=== PATIENT | female | born 2000 | race Caucasian/White ===

== ENCOUNTER 2023-12-28 11:22 | Outpatient (AMB) | payer OTHER, SELFPAY ==
--- NOTE | 2023-12-28 11:24 | MHC.PC.OV ---
Vital Signs 12/28/23 11:35 Height 5 ft 7 in Weight 160 lb 6 oz BMI 25.1 BP 106/60 Blood Pressure Location Lt brachial Position Sitting Respiration 12 Pulse 101 H Pulse Source Pulse Oximeter Pulse Oximetry (%) 99 Oxygen Delivery Method Room Air Intake Visit Reasons: CPE Intake Note: Patient is here for a CPE and she would like to discuss getting her control out and has a concern for hearing evaluation. Operational Intelligence Officer Required: No Accompanied by: Self / Same As Patient Allergies No Known Allergies Allergy (Verified 12/28/23 11:40) Tobacco use date assessed: 12/28/23 Dental Screening Dental Screen Date: 12/28/23 Did you have a dental visit in the last 12 months?: Yes Did you have a dental problem in the last 6 months where you did not have access to dental care?: No Was dental information given to patient?: Patient has dentist HPI CPE HPI Details Patient is a 23-year-old female who presents today to [facility]. 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 States her last physical was in May. She is here because she aged out of the practice. She reports a significant past medical history of PTSD/anxiety. She is following with a therapist. She has been on fluoxetine 10 mg since 2019 and tolerates this well. She denies any SI/HI. -She does complain today of some decreased hearing for the past year. She states it feels like she ask people to repeat themselves a lot. She has not noticed that 1 side is particularly worse than the other. No ringing in her ears, pain, sinus pain or pressure. Does report a lot of exposure to loud noises. 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 She has a Nexplanon and states that she would like this removed. She does not have a pharmacist critical care. 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 [facility] Medical History (Updated 12/28/23 @ 12:31 by Meghan Meredith PA-C) Anxiety Surgical History (Updated 12/28/23 @ 12:12 by Makeda Srinivasan CMA) No pertinent past surgical history Family History (Updated 12/28/23 @ 12:10 by Makeda Srinivasan CMA) Father Gastrointestinal complaints Paternal Aunt Alcoholism Maternal Grandfather Hyperlipidemia Maternal Grandmother Celiac disease Maternal Uncle Alcoholism Maternal Aunt Alcoholism Paternal Grandfather Colon cancer Sister ADHD (attention deficit hyperactivity disorder) Social History Household Members: Family Housing: House Are you a primary childcare worker to a significant other at home: No Do you presently have visiting nurse or other home services: No 75 years or older and lives alone: No Alcohol intake: current Alcohol intake frequency: a few times a month Patient Tobacco Use Status: Never used Tobacco e-Cigarette/Vaping Use: Never Used service: No Current occupational status: employed Current occupation: [employer] Current occupational exposures/hazards: No Cognitive needs: No Hearing needs: Yes Vision needs: Yes Questionnaire PHQ-9 Over the last 2 weeks, how often have you been bothered by any of the following problems? 1. Little interest or pleasure in doing things: not at all 2. Feeling down, depressed, or hopeless: not at all 3. Trouble falling or staying asleep, or sleeping too much: not at all 4. Feeling tired or having little energy: several days 5. Poor appetite or overeating: not at all 6. Feeling bad about yourself - or that you are a failure or have let yourself or your family down: not at all 7. Trouble concentrating on things, such as reading the newspaper or watching television: not at all 8. Moving or speaking so slowly that other people could have noticed. Or the opposite - being so fidgety or restless that you have been moving around a lot more than usual: not at all 9. Thoughts that you would be better off or of hurting yourself in some way: not at all Total score: 1 Depression Screening Interpretation: Negative (Patient notes she has a therapist ) Depression Screening Done: Yes 74359 - PHQ-9 Billing: Yes Source: Developed by Drs. Chandana Mackay, Raven Lam, Kavin Perales and colleagues, with an educational yvan from [employer]. Thrive Questionnaire Date Thrive assessed: 12/28/23 I am a: Patient What is your living situation today?: I have a steady place to live Within the past 12 months, did the food you bought not last and you didn't have the money to get more?: Never true Within the past 12 months, did you worry whether your food would run out before you got money to buy more?: Never true Do you have trouble paying for medicines?: No Do you have trouble getting transportation to medical appointments?: No Do you have trouble paying your heating and electricity bill?: No Do you have trouble taking care of your child, family member or friend?: No Do you have trouble with day-to-day activities such as bathing, preparing meals, shopping, managing finances, etc.?: No Are you currently unemployed and looking for a job?: No Are you interested in more education?: No Please select the resources that you would like help with: None Currently or been in a relationship where the following occur: No concerns reported THRIVE Score: 0 AUDIT C Alcohol Use Questionnaire (AUDIT-C) 1. How often do you have a drink containing alcohol?: 2-4 times a month 2. How many drinks containing alcohol do you have on a typical day when you are drinking?: 1 or 2 3. How often do you have six or more drinks on one occasion?: Never Total Score: 2 ANNE-7 AMB Questionnaire ANNE-7 Date ANNE - 7 assessed: 12/28/23 Feeling nervous, anxious, or on edge: 2 = More than half the days Not being able to stop or control worryin = More than half the days Worrying too much about different things: 2 = More than half the days Trouble relaxin = Several days Being so restless that it is hard to sit still: 1 = Several days Becoming easily annoyed or irritable: 0 = Not at all Feeling afraid as if something awful might happen: 1 = Several days Total ANNE-7 score (0-4 normal; 5-9 mild; 10-14 moderate; 15-21 severe): 9 Source: Developed by Drs. Chandana Mackay, Raven Lam, Kavin Perales and colleagues, with an educational yvan from [employer]. ANNE-7 Assessment Billing ANNE-7 Assessment Tool: ANNE-7 Assessment 22199 Physical exam (Primary Care) Vital Signs: Last Vital Signs Pulse 101 H 12/28/23 11:35 Resp 12 12/28/23 11:35 BP 106/60 12/28/23 11:35 Pulse Ox 99 12/28/23 11:35 Oxygen Delivery Method Room Air 12/28/23 11:35 BMI result Body Mass Index 25.1 Tobacco/Smoking Status: Tobacco use Status Tobacco use date assessed 12/28/23 12/28/23 11:45 Patient Tobacco Use Status Never used Tobacco 12/28/23 11:45 e-Cigarette/Vaping Use Never Used 12/28/23 11:45 PHQ-9: PHQ-9 Score PHQ-9: Total score 0 12/28/23 11:45 Depression Screening Interpretation: Negative (Patient notes she has a therapist ) Thrive Assessment: Date of Thrive Assessment Date Thrive assessed 12/28/23 12/28/23 11:45 Currently or been in a relationship where the following occur: No concerns reported Const Orientation/consciousness: patient oriented x3 HENMT Ears: hearing grossly normal bilaterally, external ears normal, TM's normal bilaterally, Benavidez (increase to left) and Rinne test (equal) General nose exam: No nasal polyps present Face and sinus: Yes sinuses nontender Mouth: Normal oral and palatal mucosa present and tongue normal Throat: Yes posterior oropharynx normal Neck Thyroid: Thyroid normal Lymphatic: no lymphadenopathy noted Resp Auscultation: clear to auscultation bilaterally Cardio Rate: regular rate Rhythm: regular rhythm Heart sounds: S1 normal heart sound present and S2 normal heart sound present GI Inspection: Yes normal to inspection Palpation (GI): Soft to palpation and Other GI palpation findings present (nontender, no cva tenderness) Auscultation: normoactive bowel sounds Rectal Exam - Female: deferred Skin General skin exam: no rashes or lesions noted Neuro General: patient oriented x3, gait normal and no focal motor deficits Assessment and Plan Assessment & Plan (1) Generalized anxiety disorder: Code(s): F41.1 - Generalized anxiety disorder (2) Decreased hearing of both ears: Code(s): H91.93 - Unspecified hearing loss, bilateral Orders: Orders Complete Blood Count Auto Diff Today F41.1 - Generalized anxiety disorder, H91.93 - Unspecified hearing loss, bilateral, Z13.220 - Encounter for screening for lipoid disorders, Z13.6 - Encounter for screening for cardiovascular disorders Comprehensive Mellette. Panel Fast Today F41.1 - Generalized anxiety disorder, H91.93 - Unspecified hearing loss, bilateral, Z13.220 - Encounter for screening for lipoid disorders, Z13.6 - Encounter for screening for cardiovascular disorders Lipid Panel Today F41.1 - Generalized anxiety disorder, H91.93 - Unspecified hearing loss, bilateral, Z13.220 - Encounter for screening for lipoid disorders, Z13.6 - Encounter for screening for cardiovascular disorders TSH reflex Free T4 Today F41.1 - Generalized anxiety disorder, H91.93 - Unspecified hearing loss, bilateral, Z13.220 - Encounter for screening for lipoid disorders, Z13.6 - Encounter for screening for cardiovascular disorders Referrals ODD TICKET CLERK Referral Z01.419 - Encounter for gynecological examination (general) (routine) without abnormal findings Ear/Nose/Throat Referral H91.93 - Unspecified hearing loss, bilateral Coding Level of Care Code New Pt Level 3 (62745) Complex EM visit Add On G2211 Diagnoses Generalized anxiety disorder F41.1 Decreased hearing of both ears H91.93 Additional Codes ANNE-7 Assessment Billing - ANNE-7 Assessment Tool: ANNE-7 Assessment 45746 ([id number])
[2023-12-28 11:35] VITALS: BP 106/60; PULSE 101; RESP 12; O2SAT 99; BMI 25.1
== END 2023-12-28 12:22 | disposition home or self-care (01) ==
PROVIDERS: PCP Nurse Practitioner Family; Visit Provider Physician Assistant
DX: F41.1 Generalized anxiety disorder (principal); H91.93 Unspecified hearing loss, bilateral
CPT/HCPCS: 96127; 99203

== ENCOUNTER 2024-01-06 08:36 | Outpatient (REF) | payer OTHER, SELFPAY ==
[2024-01-06 11:06] LABS: MANUAL DIFF FLAG NO
[2024-01-06 11:21] LABS: Basophils Percent Auto 0.7 % (0-2); Eosinophils Absolute Auto 0.3 X10*3/uL (0.0-0.4); Eosinophils Percent Auto 4.5 % (0-4); Hematocrit 41.5 % (37.0-47.0); Hemoglobin 14.3 g/dl (12.0-16.0); Imm Gran Abs Auto 0.02 X10*3/uL (0.00-0.03); Imm Gran Pct Auto 0.4 % (0.0-0.4); Lymphocytes Absolute Auto 1.8 X10*3/uL (1.2-4.9); Lymphocytes Percent Auto 31.6 % (20-40); Mean Corpuscular HGB Conc 34.5 g/dl (31.0-35.0); Mean Corpuscular Hemoglobin 29.9 pg (27.0-33.0); Mean Corpuscular Volume 86.8 fL (80.0-98.0); Mean Platelet Volume 11.1 fL (9.4-12.3); Monocytes Absolute Auto 0.4 X10*3/uL (0.1-1.2); Monocytes Percent Auto 7.2 % (2-11); Neutrophils Absolute Auto 3.1 x10*3/uL (2.0-8.3); Neutrophils Percent Auto 55.6 % (45-73); Platelet Count 184 X10*3/uL (160-400); Red Blood Count 4.78 X10*6/uL (4.20-5.50); White Blood Count 5.5 X10*3/uL (4.8-10.8)
[2024-01-06 12:05] LABS: Alanine Aminotransferase 9 U/L (0-31); Albumin Level 4.1 g/dL (3.5-5.0); Alkaline Phosphatase 63 U/L (39-117); Anion Gap 10 (12-20); Aspartate Amino Transferase 17 U/L (5-31); Bilirubin Total 0.8 mg/dL (0.0-1.0); Blood Urea Nitrogen 10 mg/dL (9-16); Carbon Dioxide 29 mmol/L (22-29); Chloride 107 mmol/L (96-108); Cholesterol 189 mg/dL (<200); Estimated Glomerular Filt Rate > 60; Glucose Fasting 73 mg/dL (60-99); HDL Cholesterol 43 mg/dL (>40); LDL Cholesterol Calculated 126 mg/dL (<100); Sodium 142 mmol/L (135-145); TSH reflex Free T4 1.23 uIU/mL (0.32-4.0); Total Protein 6.7 g/dL (6.5-8.0); Triglycerides 103 mg/dL (<150)
== END 2024-01-06 08:37 | disposition home or self-care (01) ==
LOC: HO.WFDLDS 08:36
PROVIDERS: Visit Provider Physician Assistant
DX: F41.1 Generalized anxiety disorder (principal); H91.93 Unspecified hearing loss, bilateral; Z13.220 Encounter for screening for lipoid disorders; Z13.6 Encounter for screening for cardiovascular disorders
CPT/HCPCS: 36415; 80053; 80061; 84443; 85025

== ENCOUNTER 2024-03-12 07:50 | Outpatient (REF) | payer OTHER, SELFPAY | END 2024-03-12 07:51 | disposition home or self-care (01) | LOC: HO.SH 07:50 | PROVIDERS: Visit Provider Physician Assistant | DX: Z01.118 Encounter for examination of ears and hearing with other abnormal findings (principal); H93.293 Other abnormal auditory perceptions, bilateral | CPT/HCPCS: 92557; 92567 ==

== ENCOUNTER 2024-04-04 14:56 | Outpatient (AMB) | payer OTHER, SELFPAY ==
--- NOTE | 2024-04-04 14:52 | A.OFFPC_ITS ---
Intake Visit Reasons: Telehealth with me to review meds Intake Note: patient here for telehealth follow up on meds Mail Room Clerk Required: No Is last menstrual period known: Yes Last menstrual period: 04/04/24 Post menopausal: No Patient : No Allergies No Known Allergies Allergy (Verified 04/04/24 15:34) Medication List - Last Reconciled 04/04/24 by Rosanne Herrera, NET DEVELOPMENT MANAGER- cholecalciferol (vitamin D3) 50 mcg PO DAILY etonogestrel (Nexplanon) subdermal fluoxetine 10 mg PO DAILY Tobacco use date assessed: 04/04/24 Dental Screening Dental Screen Date: 04/04/24 Did you have a dental visit in the last 12 months?: Yes Did you have a dental problem in the last 6 months where you did not have access to dental care?: No Was dental information given to patient?: Patient has dentist HPI HPI Comments History of Present Illness Details History of Present Illness The patient is a 23-year-old female presenting with a request for medication review. She reports being on fluoxetine 10 mg daily since June 2019 for anxiety disorder. The patient states that the medication has been effective, and she has not altered the dosage since its initiation. Concurrently, she has been actively engaged in therapy, which has advised against modifying the medication as it appears beneficial. Apart from fluoxetine, the patient has a Nexplanon implant and takes a vitamin D supplement, the dosage of which she does not recall. She denies ever having undergone blood tests to check vitamin D levels. There is no history of any adverse reactions or hospitalizations related to mental health issues. The patient also has a pending appointment with her CRYSTAL EVALUATOR for potential removal of the Nexplanon implant. Review of Systems - General: Denies any allergies. - Psychiatric: Reports stable on current fluoxetine dose, denies depression, denies history of hospitalization for mental health. Note: This physical exam was conducted in conjunction with the patient via our Telehealth platform. Plan - Continue current fluoxetine therapy at 10 mg daily, as it is effectively managing the patient's anxiety disorder. - Document vitamin D supplement details when available; commonly used dosage is 2000 units. - No immediate change required for Nexpl anon implant; monitor appointment with CRYSTAL EVALUATOR for further management and potential removal. - ScheduleD follow-up in June for a physical examination or sooner if needed. Patient was informed and verbally consented to the use of an ambient scribe for clinic note documentation during this visit. Discussion Notes We discussed the patient's current medication regimen, confirming the efficacy of 10 mg daily fluoxetine for anxiety without any incidents of adverse effects. I advised that it is unnecessary to modify the fluoxetine dose given the stability of the condition. The importance of maintaining a current and accurate medication list was emphasized, including [id number] supplements such as vitamin D. We reviewed her contraceptive Nexplanon implant with plans to coordinate care with her CRYSTAL EVALUATOR for potential removal. I stressed that the patient should contact the clinic if there are any changes or issues with her medications prior to her next scheduled visit in June or sooner if required. Patient Instructions - Continue taking fluoxetine 10 mg daily as prescribed, 90 day RX w/ refill sent. - Confirm vitamin D supplement dosage an d update the medical record. - Follow up with CRYSTAL EVALUATOR regarding Nexpla non management - appt next week, wants to get Nexplanon out. - Reach out via patient portal or visit the office during walk-in hours for any medication issues or if experiencing any health concerns before the next appointment in June. Total time spent caring for the patient today was 10 minutes. This includes time spent before the visit reviewing the chart, time spent during the visit, and time spent after the visit on documentation [facility] Medical History (Updated 12/28/23 @ 12:31 by Meghan Meredith PA-C) Anxiety Surgical History (Updated 12/28/23 @ 12:12 by Makeda Srinivasan CMA) No pertinent past surgical history Family History (Updated 12/28/23 @ 12:10 by Makeda Srinivasan CMA) Father Gastrointestinal complaints Paternal Aunt Alcoholism Maternal Grandfather Hyperlipidemia Maternal Grandmother Celiac disease Maternal Uncle Alcoholism Maternal Aunt Alcoholism Paternal Grandfather Colon cancer Sister ADHD (attention deficit hyperactivity disorder) Social History (Updated 12/28/23 @ 12:13 by Makeda Srinivasan CMA) Household Members: Family Housing: House Are you a primary adult caregiver to a significant other at home: No Do you presently have visiting nurse or other home services: No 75 years or older and lives alone: No Alcohol intake: current Alcohol intake frequency: a few times a month Patient Tobacco Use Status: Never used Tobacco e-Cigarette/Vaping Use: Never Used Second Hand Smoke Exposure: No Patient : No service: No Current occupational status: employed Current occupation: [employer] Current occupational exposures/hazards: No Cognitive needs: No Hearing needs: Yes Vision needs: Yes Female Reproductive History Menstrual Date of last menstrual period: 04/04/24 Questionnaire Thrive Questionnaire Date Thrive assessed: 12/28/23 ANNE-7 AMB Questionnaire ANNE-7 Date ANNE - 7 assessed: 12/28/23 Source: Developed by Drs. Chandana Mackay, Raven Lam, Kavin Perales and colleagues, with an educational yvan from [email or web address]. Physical exam (Primary Care) Tobacco/Smoking Status: Tobacco use Status Tobacco use date assessed 04/04/24 04/04/24 14:55 Patient Tobacco Use Status Never used Tobacco 04/04/24 14:55 e-Cigarette/Vaping Use Never Used 04/04/24 14:55 Thrive Assessment: Date of Thrive Assessment Date Thrive assessed 12/28/23 04/04/24 14:55 Telehealth Telehealth Telehealth Platform: Telephone Location of provider rendering services: practice address Location of patient: address on file Patient Identification confirmed using: Name, : Yes Telehealth method: voice only Patient verbally consented to treatment: Yes Patient verbally consented to billing insurance company: Yes Patient informed of any privacy concerns related to visit: Yes Minutes spent on Phone/Video with Pt.: 5 Coding Level of Care Code Tele Est Pt Level 1 (19861) Complex EM visit Add On G2211 Diagnoses Generalized anxiety disorder F41.1 Assessment & Plan Assessment & Plan (1) Generalized anxiety disorder: Code(s): F41.1 - Generalized anxiety disorder Category: Medical Plan . Medications: New fluoxetine 10 mg PO DAILY 90 caps 2RF
== END 2024-04-04 15:40 | disposition home or self-care (01) ==
LOC: HO.HMCFM 14:56
PROVIDERS: PCP Nurse Practitioner Family; Visit Provider Nurse Practitioner Family
DX: F41.1 Generalized anxiety disorder (principal)

== ENCOUNTER 2024-04-19 09:46 | Outpatient (AMB) | payer OTHER, SELFPAY ==
[2024-04-19 09:54] VITALS: BP 100/60; BMI 26.0
--- NOTE | 2024-04-19 09:54 | A.OFFVIS_ITS ---
Vital Signs 04/19/24 09:54 Height 5 ft 7 in Weight 166 lb BMI 26.0 BP 100/60 Intake Visit Reasons: CERAMIC SPRAYER annual exam/Referral Marketing Technology Coordinator Required: No Information Interpreted: clinical only Model And Dye Person: Model And Dye Person Present Allergies No Known Allergies Allergy (Verified 04/19/24 09:54) Medication List - Last Reconciled 04/19/24 by Esperanza May CNM cholecalciferol (vitamin D3) 50 mcg PO DAILY etonogestrel (Nexplanon) subdermal fluoxetine 10 mg PO DAILY Is last menstrual period known: Yes Last menstrual period: 04/12/24 HPI HPI CERAMIC SPRAYER annual exam/Referral: Details: This patient is scheduled for a new lockstitch pocket setter annual exam. She believes she had a pelvic exam with her field appraiser about when she turned 20 she knows swabs were done but she is not exactly sure she had a Pap or not. She has a boyfriend and she was going to have him come with her but he has a dentist appointment in [place] today so it was a difficult timing. She has a Nexplanon and wants to talk about taking it out or replacing it she has been on pills before but had reactions to them and needed to try Depo and then the Nexplanon she is terrified of IUDs. She is pretty clear she does not want to have children and she and her boyfriend are talking about whether not he would get a vasectomy he is slightly older than she is. 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 She sometimes gets some vaginal itching and treats it with Monistat and it works she does not feel like she has symptoms today Her Nexplanon was inserted by an SUPPORT SERVICES SPECIALIST in May of 2019 2 and is due for removal or replacement this coming May which is next month. She has contemplated going without any thing because she is so annoyed with the irregular bleeding pattern that seems to happen with no pattern. While we were discussing her bleeding pattern and her history as above she suddenly appeared pale and felt she needed to lie down and became slightly unresponsive her skin was cold and clammy, and pale. she was turned to her side,while basic assessments revealed she had a pulse and was breathing. She soon responded to voice, and came to. She told me that she does not think she has any sort of seizure disorder. I shared that it appeared that she had had a vasovagal episode, and she told me that that is what her father, who is also a field appraiser, told her as well. She told me this is happened before particularly whenever she is about to have any kind of procedure done or blood drawn were medical offices. She had some history of trauma from exposure in the past medical settings. She says it was not with a pelvic exam, but from other experiences and exposures. [facility] Medical History (Updated 04/19/24 @ 12:35 by Esperanza May CNM) Anxiety Surgical History (Reviewed 04/19/24 @ 09:55 by Jennifer Valente [facility] [address]) No pertinent past surgical history Family History (Reviewed 04/19/24 @ 09:55 by Jennifer Valente [facility]) Father Gastrointestinal complaints Paternal Aunt Alcoholism Maternal Grandfather Hyperlipidemia Maternal Grandmother Celiac disease Maternal Uncle Alcoholism Maternal Aunt Alcoholism Paternal Grandfather Colon cancer Sister ADHD (attention deficit hyperactivity disorder) Social History (Reviewed 04/19/24 @ 09:55 by Jnenifer Valente [facility]) Household Members: Family Housing: House Are you a primary manager wound care to a significant other at home: No Do you presently have visiting nurse or other home services: No 75 years or older and lives alone: No Alcohol intake: current Alcohol intake frequency: a few times a month Patient Tobacco Use Status: Never used Tobacco e-Cigarette/Vaping Use: Never Used Second Hand Smoke Exposure: No service: No Current occupational status: employed Current occupation: [employer] Current occupational exposures/hazards: No Cognitive needs: No Hearing needs: Yes Vision needs: Yes Female Reproductive History Menstrual Age of Menarche: 11 Duration of menses: other Date of last menstrual period: 04/12/24 control method: implanted History of abnormal pap smear: No (no previous pap) Physical Exam Vital Signs: Last Vital Signs BP 100/60 04/19/24 09:54 BMI result Body Mass Index 26.0 Const Other: Please see both the HPI and plan for description of her vasovagal episode which occurred while we were talking about her breakthrough bleeding on her Nexplanon in reviewing her history. When she came to and felt recovered enough to continue conversation I asked to palpate her Nexplanon in planning for the removal and replacement process if she decided that is what she wanted. The Nexplanon which had been placed in her left arm was not palpable by me at all the patient could not palpated either. So referral will be placed to general surgery for discussion about removal of the Nexplanon. Assessment & Plan Assessment & Plan (1) Breakthrough bleeding on Nexplanon: Code(s): N92.1 - Excessive and frequent menstruation with irregular cycle; Z97.5 - Presence of (intrauterine) contraceptive device Category: Medical (2) Vasovagal episode: Code(s): R55 - Syncope and collapse Category: Medical (3) Encounter for monitoring of etonogestrel implant: Comment: Patient reports frequent bleeding on Nexplanon it is due for removal or replacement in this coming May next month. Nexplanon not able to be palpated in left arm. Referred to general surgery with report of her vasovagal rx. Code(s): Z30.46 - Encounter for surveillance of implantable subdermal contraceptive Category: Medical (4) Anxiety: Code(s): F41.9 - Anxiety disorder, unspecified Category: Medical Plan This patient is scheduled for a new lockstitch pocket setter annual exam. She believes she had a p elvic exam with her field appraiser about when she turned 20 she knows swabs were done but she is not exactly sure she had a Pap or not. She has a boyfriend and she was going to have him come with her but he has a dentist appointment in [place] today so it was a difficult timing. She has a Nexplanon and wants to talk about taking it out or replacing it she has been on pills before but had reactions to them and needed to try Depo and then the Nexplanon she is terrified of IUDs. She is pretty clear she does not want to have children and she and her boyfriend are talking about whether not he would get a vasectomy he is slightly older than she is. 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 She sometimes gets some vaginal itching and treats it with Monistat and it works she does not feel like she has symptoms today Her Nexplanon was inserted by an SUPPORT SERVICES SPECIALIST in May of 2019 2 and is due for removal or replacement this coming May which is next month. She has contemplated going without any thing because she is so annoyed with the irregular bleeding pattern that seems to happen with no pattern. While we were discussing her bleeding pattern and her history as above she suddenly appeared pale and felt she needed to lie down and became slightly unresponsive her skin was cold and clammy, and pale. she was turned to her side,while basic assessments revealed she had a pulse and was breathing. She soon responded to voice, and came to. She told me that she does not think she has any sort of seizure disorder. I shared that it appeared that she had had a vasovagal episode, and she told me that that is what her father was also a field appraiser told her as well. She told me this is happened before particularly whenever she is about to have any kind of procedure done or blood drawn were medical offices. She had some history of trauma from exposure in the past medical settings. She says it was not with a pelvic exam, but from other experiences. Plan made to refer her to General surgery for consultation about the removal of her Nexplanon discussed using condoms 100% and plan B if needed as a backup in any interim if she decides she wants to place it she would need to sign a form but she is unsure at this point. She is very clear she does not want to have children. Full discussion about alternative methods did take place. She has an upcoming visit with her new nurse practitioner in June. I will see her again for a lockstitch pocket setter visit with Pap smear and full assessments she did not think she needed a pelvic exam today and did not have vaginal itching but she did accept a prescription for Monistat cream for p.r.n. use and teaching done about yeast prevention also occurred. Orders: Referrals General Surgery Referral N92.1 - Excessive and frequent menstruation with irregular cycle, R55 - Syncope and collapse, Z30.46 - Encounter for surveillance of implantable subdermal contraceptive, Z97.5 - Presence of (intrauterine) contraceptive device Medications: New miconazole nitrate 2% (Miconazole-7) 1 appful vaginal BEDTIME 7 days 45 grams 3RF Coding Level of Care Code New Pt Level 4 (85994) Diagnoses Breakthrough bleeding on Nexplanon N92.1; Z97.5 Vasovagal episode R55 Encounter for monitoring of etonogestrel implant Z30.46 Anxiety F41.9 Time Spent (min) 50 Comment 100% obtaining hx and supporting pt w vaso vagal episode, and plan
== END 2024-04-19 11:23 | disposition home or self-care (01) ==
LOC: HO.HWSM 09:46
PROVIDERS: PCP Nurse Practitioner Family; Visit Provider Advanced Practice Midwife
DX: N92.1 Excessive and frequent menstruation with irregular cycle (principal); R55 Syncope and collapse; F41.9 Anxiety disorder, unspecified; Z30.46 Encounter for surveillance of implantable subdermal contraceptive
CPT/HCPCS: 99204

== ENCOUNTER 2024-05-29 10:53 | Outpatient (AMB) | payer OTHER, SELFPAY ==
--- NOTE | 2024-05-29 10:56 | MHC.OFFVIS ---
Vital Signs 05/29/24 11:03 Height 5 ft 7 in Weight 164 lb 4 oz BMI 25.7 BP 121/65 Blood Pressure Location Lt brachial Position Sitting Pulse 80 Intake Visit Reasons: Nexplanon removal Intake Note: Patient is seen in office for surgical consult, requesting nexplanon removal. Pt c/o: gets anxious during procedures, here to discuss removing the nexplanon ref. Esperanza May Radar Tester Required: No Accompanied by: Family/Other Allergies No Known Allergies Allergy (Verified 05/29/24 11:03) HPI Comments Details: 23-year-old female patient presenting for evaluation of Nexplanon removal from left arm. This was inserted approximately 3 years ago in [facility] by her maint mechanic. She is requesting to have it removed but reports she is unable to feel the device. She denies any pain, redness or discharge from the arm. She reports that she becomes very lightheaded and passes out when discussing any type of procedure or when having blood drawn. She passed out during her recent obstetrician and gynaecologist visit with Esperanza May CNM. [facility] Medical History Anxiety Surgical History No pertinent past surgical history Family History Father Gastrointestinal complaints Paternal Aunt Alcoholism Maternal Grandfather Hyperlipidemia Maternal Grandmother Celiac disease Maternal Uncle Alcoholism Maternal Aunt Alcoholism Paternal Grandfather Colon cancer Sister ADHD (attention deficit hyperactivity disorder) Social History Household Members: Family Housing: House Are you a primary neonatal intensive care nurse to a significant other at home: No Do you presently have visiting nurse or other home services: No 75 years or older and lives alone: No Alcohol intake: current Alcohol intake frequency: a few times a month Patient Tobacco Use Status: Never used Tobacco e-Cigarette/Vaping Use: Never Used Second Hand Smoke Exposure: No service: No Current occupational status: employed Current occupation: [employer], [employer] Current occupational exposures/hazards: No Cognitive needs: No Hearing needs: Yes Vision needs: Yes Female Reproductive History Menstrual Age of Menarche: 11 Review of Systems Const All systems reviewed & are unremarkable except as noted in HPI and below Physical Exam Const General: no acute distress Nutritional Appearance: well nourished Orientation/consciousness: patient oriented x3 Resp Effort & Inspection: normal respiratory effort, no audible wheezes, no cough and no respiratory distress GI Inspection: Yes normal to inspection Skin Other: Warm, dry, no rashes Neuro General: patient oriented x3 Extrem Other: Left upper arm examined, no palpable Nexplanon noted Assessment & Plan Assessment & Plan (1) Encounter for Nexplanon removal: Code(s): Z30.46 - Encounter for surveillance of implantable subdermal contraceptive Category: Medical Plan 23-year-old female patient with a previous history of anxiety presenting to discuss removal of the Nexplanon of her left arm. On examination the Nexplanon is not palpable therefore removal will require fluoroscopy. I reviewed the procedure, risks, and alternatives and she consents to removal of the left arm Nexplanon with fluoroscopy which will be scheduled as a short-stay surgery under [facility]. Coding Level of Care Code New Pt Level 4 (99040) Diagnoses Encounter for Nexplanon removal Z30.46
[2024-05-29 11:03] VITALS: BP 121/65; PULSE 80; BMI 25.7
== END 2024-05-29 11:35 | disposition home or self-care (01) ==
PROVIDERS: PCP Nurse Practitioner Family; Referring Provider Advanced Practice Midwife; Visit Provider Surgery
DX: Z30.46 Encounter for surveillance of implantable subdermal contraceptive (principal)
CPT/HCPCS: 99204

== ENCOUNTER 2024-06-01 13:22 | Outpatient (REF) | payer OTHER, SELFPAY ==
[2024-06-02 12:36] LABS: Bacterial Vaginosis PCR NEGATIVE (Negative); Candida Group PCR NOT DETECTED (Not Detect); Candida glab krusei PCR NOT DETECTED (Not Detect); Trichomonas vaginalis PCR NOT DETECTED (Not Detect)
[2024-06-02 13:08] LABS: CT PCR NOT DETECTED (Not Detect.); NG PCR NOT DETECTED (Not Detect.)
== END 2024-06-01 13:23 | disposition home or self-care (01) ==
LOC: HO.LNP 13:22
PROVIDERS: PCP Nurse Practitioner Family; Visit Provider Advanced Practice Midwife
DX: Z01.419 Encounter for gynecological examination (general) (routine) without abnormal findings (principal); N89.8 Other specified noninflammatory disorders of vagina; Z20.2 Contact with and (suspected) exposure to infections with a predominantly sexual mode of transmission
CPT/HCPCS: 81515; 87491; 87591; 88175

== ENCOUNTER 2024-06-01 13:22 | Outpatient (AMB) | payer OTHER, SELFPAY ==
--- NOTE | 2024-06-01 13:26 | MHC.OFFVIS ---
Vital Signs 06/01/24 13:31 Height 5 ft 7 in Weight 164 lb BMI 25.7 BP 120/78 Intake Visit Reasons: pap/pelvic exam Handkerchief Presser Required: No Handkerchief Presser Services: Handkerchief Presser Present Information Interpreted: clinical only Cardiothoracic Physiotherapist: Cardiothoracic Physiotherapist Present Allergies No Known Allergies Allergy (Verified 06/01/24 13:31) Medication List - Last Reconciled 06/01/24 by Esperanza May CNM etonogestrel (Nexplanon) subdermal fluoxetine 10 mg PO DAILY Is last menstrual period known: Yes Last menstrual period: 05/23/24 HPI HPI pap/pelvic exam: Details: Patient is here for physical exam part of her previously scheduled visit. She had been very anxious had a vasovagal response during the conversation before the exam part of the visit was approached. She has a Nexplanon in that I was unable to palpate at the last visit so I referred her to general surgery for discussion about planning removal of it. She saw Dr. Lopes this week and use planning removal procedure under fluoroscopy. She says that plan is fine and the appointment for that is scheduled for July 04. She brought her boyfriend Rene with her today and wrote a letter that she wanted me to see in before she came into the expressing her desire to stay lying down during the exam in case she felt faint which is what she is afraid of. (She did voluntarily sit up during the visit however to remove her bra). She expressed in the letter that since she is going to need an interim method wants the Nexplanon is removed and pills be BV obvious choice she wants to discuss that in a tele visit and not discuss it today so she does not need pull long this visit. She says she gets frequent periods and her last 1 was May 23 and lasted 7 days. She is thinks she got about 3 periods in April but she is not really sure.. Discussed that these may not be true periods but and irregular bleeding pattern related to the Nexplanon.. She voiced that she would use condoms until she gets on control pills and we did discuss making sure she has no unprotected intercourse between methods and I did also mention that usually starting control pills with her period Is the best course, just to let him know ahead of time. [facility] Medical History Anxiety Surgical History No pertinent past surgical history Family History Father Gastrointestinal complaints Paternal Aunt Alcoholism Maternal Grandfather Hyperlipidemia Maternal Grandmother Celiac disease Maternal Uncle Alcoholism Maternal Aunt Alcoholism Paternal Grandfather Colon cancer Sister ADHD (attention deficit hyperactivity disorder) Social History Household Members: Family Housing: House Are you a primary animal care worker to a significant other at home: No Do you presently have visiting nurse or other home services: No 75 years or older and lives alone: No Alcohol intake: current Alcohol intake frequency: a few times a month Patient Tobacco Use Status: Never used Tobacco e-Cigarette/Vaping Use: Never Used Second Hand Smoke Exposure: No service: No Current occupational status: employed Current occupation: [employer] Current occupational exposures/hazards: No Cognitive needs: No Hearing needs: Yes Vision needs: Yes Female Reproductive History Menstrual Age of Menarche: 11 Duration of menses: 3-5 days Date of last menstrual period: 05/23/24 control method: implanted History of abnormal pap smear: No (no previous pap) Physical Exam Vital Signs: Last Vital Signs BP 120/78 06/01/24 13:31 BMI result Body Mass Index 25.7 Const General: healthy appearing, comfortable, no acute distress, well developed and alert Nutritional Appearance: average body habitus Orientation/consciousness: patient oriented x3 Limitations: no limitations HEENT Head: Yes normocephalic Neck Neck: Yes normal visual inspection Chest Chest palpation & inspection: normal inspection of the chest Breast/axilla inspection: normal inspection of the breasts and normal inspection of the axillae Breast/axilla palpation: normal palpation of the breasts and normal palpation of the axillae Resp Effort & Inspection: normal respiratory effort GI Inspection: Yes normal to inspection, No Abdominal wall edema and No distended Palpation (GI): Soft to palpation and nontender Other: Normal external exam her vagina is pink and moist cervix nulliparous smooth healthy appearing downward pointing. Uterus is small midposition mobile nontender adnexa nontender not enlarged. Very good tone with Kegel. I did offer her opportunity to see her cervix but she declined. General: Yes bladder normal to palpation External Female Exam: normal external appearance and normal appearance of the urethra Speculum Exam - Vagina: normal appearance of the vagina, normal palpation and normal vaginal discharge Speculum Exam - Cervix: normal appearance of the cervix, normal palpation and nontender Bimanual exam- vagina & uterus: normal bimanual exam, normal palpation, uterine size normal, bladder normal to palpation, consistency normal, normal palpation, uterine mobility normal, uterine shape normal, No Cervical tenderness present, non-tender and no cervical motion tenderness Bimanual Exam- Adnexa, other: normal adnexae, no masses, normal and No adnexal tenderness Neuro General: patient oriented x3 Assessment & Plan Assessment & Plan (1) Breakthrough bleeding on Nexplanon: Code(s): N92.1 - Excessive and frequent menstruation with irregular cycle; Z97.5 - Presence of (intrauterine) contraceptive device Category: Medical (2) Encounter for monitoring of etonogestrel implant: Comment: Patient reports frequent bleeding on Nexplanon it is due for removal or replacement in this coming May next month. Nexplanon not able to be palpated in left arm. Referred to general surgery with report of her vasovagal rx. Code(s): Z30.46 - Encounter for surveillance of implantable subdermal contraceptive Category: Medical (3) Generalized anxiety disorder: Code(s): F41.1 - Generalized anxiety disorder Category: Medical (4) Cervical cancer screening: Code(s): Z12.4 - Encounter for screening for malignant neoplasm of cervix Category: Medical (5) Encounter for screening examination for sexually transmitted disease: Code(s): Z11.3 - Encounter for screening for infections with a predominantly sexual mode of transmission Category: Medical (6) control counseling: Comment: Discussed her plan for OCPs planning for them briefly. She desires a separate tele visit to discuss more thoroughly. Recommend no unprotected intercourse Nexplanon and start of OCPs. Code(s): Z30.09 - Encounter for other general counseling and advice on contraception Category: Medical Plan Patient expressed so it is desire to limit extent this visit however, Education around testing that we did today was integral to the visit as well as to ensure she uses condoms between removal of the Nexplanon started OCPs I did agree to have a separate visit to review her OCPs in the future at her to using. Discussed that normally pills our best to start with her menses for many reasons and also that given that she is having such frequent episodes of bleeding truly represent menses all of them but more of an irregular bleeding pattern with the Nexplanon. We will schedule a tele visit at her discretion she has her appointment for Nexplanon removal on July 04 she intends to use condoms. She did not have any undue reactions today to physical exam and pelvic exam as part of the visit. She declined need for blood work for STIs she has an appointment with her primary care provider coming up in a couple of weeks, Next visit will be a tele visit to discuss starting control pills. Orders: Orders Pap Smear Today Z01.419 - Encounter for gynecological examination (general) (routine) without abnormal findings CT NG by PCR Today N89.8 - Other specified noninflammatory disorders of vagina, Z20.2 - Contact with and (suspected) exposure to infections with a predominantly sexual mode of transmission Bacterial Vaginosis Panel Today N89.8 - Other specified noninflammatory disorders of vagina, Z20.2 - Contact with and (suspected) exposure to infections with a predominantly sexual mode of transmission Coding Level of Care Code Est Pt Prev Care 18-39y([id number]) Diagnoses Breakthrough bleeding on Nexplanon N92.1; Z97.5 Encounter for monitoring of etonogestrel implant Z30.46 Generalized anxiety disorder F41.1 Cervical cancer screening Z12.4 Encounter for screening examination for sexually transmitted disease Z11.3 control counseling Z30.09
[2024-06-01 13:31] VITALS: BP 120/78; BMI 25.7
== END 2024-06-01 14:01 | disposition home or self-care (01) ==
PROVIDERS: PCP Nurse Practitioner Family; Visit Provider Advanced Practice Midwife
DX: Z01.419 Encounter for gynecological examination (general) (routine) without abnormal findings (principal); N92.1 Excessive and frequent menstruation with irregular cycle; Z97.5 Presence of (intrauterine) contraceptive device; Z30.46 Encounter for surveillance of implantable subdermal contraceptive; F41.1 Generalized anxiety disorder; Z11.3 Encounter for screening for infections with a predominantly sexual mode of transmission; Z30.09 Encounter for other general counseling and advice on contraception
CPT/HCPCS: 99395; 99459

== ENCOUNTER 2024-06-01 13:50 | Outpatient (REF) | payer OTHER, SELFPAY | END 2024-06-01 13:51 | disposition home or self-care (01) | LOC: HO.LAB 13:50 | PROVIDERS: Visit Provider Advanced Practice Midwife | DX: Z13.89 Encounter for screening for other disorder (principal) ==

== ENCOUNTER → 2024-06-20 09:16 | Outpatient (BNVA) | payer OTHER, SELFPAY | PROVIDERS: PCP Physician Assistant; Visit Provider Physician Assistant | DX: Z00.00 Encounter for general adult medical examination without abnormal findings (principal); F41.1 Generalized anxiety disorder; F43.10 Post-traumatic stress disorder, unspecified; Z79.899 Other long term (current) drug therapy | CPT/HCPCS: 96127 ==

== ENCOUNTER 2024-06-25 13:36 | Outpatient (AMB) | payer OTHER, SELFPAY ==
--- NOTE | 2024-06-25 13:36 | A.OFFVIS_ITS ---
Intake Visit Reasons: TV OCP follow up Allergies No Known Allergies Allergy (Verified 06/25/24 13:36) Medication List - Last Reconciled 06/25/24 by Esperanza May CNM etonogestrel (Nexplanon) subdermal fluoxetine 10 mg PO DAILY Is last menstrual period known: Yes Last menstrual period: 06/12/24 HPI HPI TV OCP follow up: Details: This is a scheduled tele visit to discuss patient's starting on control pills so that she can have an interim method to protect herself from when she gets her Nexplanon removed her Nexplanon could not be palpated by me so it needs to be removed by General surgery which they are planning to do under fluoroscopy. PFSH Medical History Anxiety Surgical History No pertinent past surgical history Family History Father Gastrointestinal complaints Paternal Aunt Alcoholism Maternal Grandfather Hyperlipidemia Maternal Grandmother Celiac disease Maternal Uncle Alcoholism Maternal Aunt Alcoholism Paternal Grandfather Colon cancer Sister ADHD (attention deficit hyperactivity disorder) Other Substance abuse Social History Household Members: Family Housing: House Are you a primary direct care specialist to a significant other at home: No Do you presently have visiting nurse or other home services: No 75 years or older and lives alone: No Alcohol intake: current Alcohol intake frequency: a few times a month Patient Tobacco Use Status: Never used Tobacco e-Cigarette/Vaping Use: Never Used Second Hand Smoke Exposure: No Substance Use Type: Marijuana service: No Current occupational status: employed Current occupation: [email or web address] Current occupational exposures/hazards: No Cognitive needs: No Hearing needs: Yes Vision needs: Yes Female Reproductive History Menstrual Age of Menarche: 11 Date of last menstrual period: 06/12/24 control method: implanted Full term: 0 Date of last pap smear: 06/04/24 (negative) History of abnormal pap smear: No Telehealth Telehealth Telehealth Platform: Telephone Location of provider rendering services: practice address Location of patient: address on file Patient Identification confirmed using: Name, : Yes Telehealth method: voice only Patient verbally consented to treatment: Yes Patient verbally consented to billing insurance company: Yes Patient informed of any privacy concerns related to visit: Yes Minutes spent on Phone/Video with Pt.: 20 Results Reviewed Results Reviewed: Name: Tomeka Tipton Age/Sex: 23/F Attending: Esperanza May CNM : 2000 Submitted by: Esperanza May CNM Copies to: Rosanne Herrera MR #: [id number] Status: DEP REF Collected: 06/01/24 Location: [facility] Received: 06/04/24 Interpretation Satisfactory for evaluation. Negative for intraepithelial lesion or malignancy. Mild inflammation. Clinical Information LMP: 05/23/24 Previous PAP test: No previous PAP Other surgery: Other history: Material Received ThinPrep-Cervix Copies To Esperanza May CNM [facility] [address] [place] [address], [address] [place], [place] [id number] Rosanne Herrera [address] [place] [address] [place] [id number] Electronically Signed By: VARSHA Wolfe (ASCP) 06/08/24 1035 As of March 07, 2024, the technical services to include automated prescreening performed by the ThinPrep Imaging System, PAP screening and HPV testing will be performed at [facility] (CLIA #[id number]), [address] [place] [address]. Testing for HPV was performed using the Aki MORENA 6800 system. The presence of HPV in the female genital tract is associated with a number of diseases, including cervical carcinoma. The HPV DNA high risk pool tests for HPV 31, 33, 35, 39, 45, 51, 52, 56, 58, 59, 66 and 68. The testing for HPV 16 and 18 genotypes has also been performed. A positive result indicates detection of nucleic acid sequences from one or more subtypes, whereas a negative result indicates such sequences were not detected. All professional services are performed by [facility] ([address] [place] [address]; ; CLIA #[id number]). Patient: Tomeka Tipton Age/Sex: 23/F MR#: [id number] Page 1 of 2 Name: Tomeka Tiptno Age/Sex: 23/F : 2000 Unit#: [id number] Attend Dr: Esperanza May CNM Re06/01/24 Status: DEP REF Location: [facility] Disch: SPEC : [id number] JOSEPH: 06/01/24-UNK STATUS: COMP REQ : [id number] RECD: 06/01/[address] [facility] [address]: Esperanza May CNM COMP: 06/02/24-1236 ENTERED: 06/01/[address] [facility] [address]: Rosanne Herrera [facility]- ORDERED: BV Panel Test Result Flag Reference TV PCR NOT DETECTED Not Detect BV PCR NEGATIVE Negative The BV organism targets of the Xpert Xpress MVP test can be commensal in women; Xpert Xpress MVP positive results for bacterial vaginosis should be considered in conjunction with other clinical and patient information to determine the disease status. Organisms that are not detected by the Xpert Xpress MVP test have also been reported to be associated with BV and aerobic vaginitis. The Xpert Xpress MVP test performance has not been evaluated in patients under the age of 14. Deborah Grp PCR NOT DETECTED Not Detect Can gla-kru NOT DETECTED Not Detect Name: Tomeka Tipton Age/Sex: 23/F : 2000 Unit#: [id number] Attend Dr: YadiraEsperanza Bustos MAGDALENA Re06/01/24 Status: DEP REF Location: [facility] Disch: SPEC : [id number] JOSEPH: 06/01/24-UNK STATUS: COMP REQ : [id number] RECD: 06/01/[address] [facility] [address]: YadiraEsperanza Bustos QUIN COMP: 06/02/24-1308 ENTERED: 06/01/[address] [facility] [address]: Rosanne Herrera [facility] ORDERED: CT NG by PCR QUERIES: CT NG Source: Vaginal Test Result Flag Reference CT PCR NOT DETECTED Not Detect. A not detected test result does not exclude the possibility of infection because test results can be affected by improper specimen collection, concurrent antibiotic th erapy, or the number of organisms in the specimen which may be below the sensitivity of the test. As with many diagnostic tests, results from the Xpert CT/NG assay should be interpreted in conjunction with other laboratory and clinical data available to the clinician. Xpert CT/NG performance has not been evaluated in patients less than 14 years of age. The assay should not be used for the evaluation of suspected sexual abuse or for other medico-legal indications. Additional testing is recommended in any circumstance when false positive or false negative results could lead to adverse medical, social or psychological consequences. NG PCR NOT DETECTED Not Detect. A not detected test result does not exclude the possibility of infection because test results can be affected by improper specimen collection, concurrent antibiotic therapy, or the number of organisms in the specimen which may be below the sensitivity of the test. As with many diagnostic tests, results from the Xpert CT/NG assay should be interpreted in conjunction with other laboratory and clinical data available to the clinician. Xpert CT/NG performance has not been evaluated in patients less than 14 years of age. The assay should not be used for the evaluation of suspected sexual abuse or for other medico-legal indications. Additional testing is recommended in any circumstance when false positive or false negative results could lead to adverse medical, social or psychological consequences. Assessment & Plan Assessment & Plan (1) Breakthrough bleeding on Nexplanon: Code(s): N92.1 - Excessive and frequent menstruation with irregular cycle; Z97.5 - Presence of (intrauterine) contraceptive device Category: Medical (2) control counseling: Comment: Discussed her plan for OCPs planning for them briefly. She desires a separate tele visit to discuss more thoroughly. Recommend no unprotected intercourse Nexplanon and start of OCPs. Code(s): Z30.09 - Encounter for other general counseling and advice on contraception Category: Medical (3) Counseling for initiation of control method: Code(s): Z30.09 - Encounter for other general counseling and advice on contraception Category: Medical Plan I reviewed her plan for Nexplanon removal would who is going to be done under general anesthesia next Tuesday she says her boyfriend and father are both accompanying her to the visit. Discussed that she has been having breakthrough bleeding from June 12 till now and that this would not be a period but otherwise breakthrough bleeding on the Nexplanon and it is not clear how long it will take so that the irregular pattern to dissipate. In her case to have no confounding variables I recommend she start the control pills the day after the Nexplanon is removed. She could take them what ever time days best for her but time to be consistent with the same time every day she took them whe n she was a teenager and had nausea and vomiting with them and they needed to be lowered to a lower estrogen but I am ordering her the lowest dose estrogen pill selection so that she would not be an issue. Reviewed danger signs and what to seek care for and originally her plan was to have the Nexplanon replaced when she could and when it was anticipated by her that it be removed and replaced at the same time that is seem like a good plan. However since that is not to be possible anymore, then she is going to wait and see how she does on pills we will have a pill check visit 3 months. If she has had a recent visit with a primary care provider or some other provider with weight blood pressure she do a tele visit and report those to me otherwise we will see her in person in 3 months for pill check visit and further discussion of control. I reviewed all her labs her Pap smear was normal and all of her STI and other testing negative and she is happy about that. 3 month ocp check Medications: New desog-e.estradiol/e.estradiol 0.15-0.02 mgx21 /0.01 mg x 5 start the day after nexplanon removal. 1 tab PO DAILY 84 tabs 4RF Coding Level of Care Code Tele Est Pt Level 3 (38423) Diagnoses Breakthrough bleeding on Nexplanon N92.1; Z97.5 control counseling Z30.09 Counseling for initiation of control method Z30.09
== END 2024-06-25 14:07 | disposition home or self-care (01) ==
LOC: HO.HWSM 13:36
PROVIDERS: PCP Physician Assistant; Visit Provider Advanced Practice Midwife
DX: N92.1 Excessive and frequent menstruation with irregular cycle (principal); Z97.5 Presence of (intrauterine) contraceptive device; Z30.09 Encounter for other general counseling and advice on contraception
CPT/HCPCS: 98013

== ENCOUNTER → 2024-06-25 13:36 | Outpatient (BNVA) | payer OTHER, SELFPAY | PROVIDERS: PCP Physician Assistant; Visit Provider Advanced Practice Midwife ==

== ENCOUNTER 2024-07-04 06:48 | Day surgery (SDC) | payer OTHER, SELFPAY ==
[2024-06-29 07:44] VITALS: BMI 25.7
[2024-07-04] VITALS (8 sets, daily range): BP systolic 89–117; BP diastolic 46–72; PULSE 62–110; RESP 12–18; TEMP 36.4–37.3; O2SAT 98–100; BMI 25.8
--- NOTE | ~2024-07-04 | FL_ITS ---
EXAMINATION: XR FLUOROSCOPY WITH IMAGES CLINICAL INFORMATION: Foreign body removal. COMPARISON: None available. TECHNIQUE: Fluoroscopy provided to: Dr. Lopes. Fluoroscopy time: 51 seconds. DAP: 0.0948 mGycm2 Images: 2 FINDINGS: 2 fluoroscopic spot images obtained during foreign body removal from an extremity . Please refer to the full operative report for detail. FL/FL guidance in OR IMPRESSION: Fluoroscopic guidance. Electronically signed by: Gutierrez Ibarra MD 07/05/2024 09:53 AM PABLO
[2024-07-04 07:26] LABS: UPreg QC Valid YES; Urine Pregnancy NEGATIVE (NEGATIVE)
--- NOTE | 2024-07-04 07:55 | P.CONAN_ITS ---
HPI - Anesthesia Eval Consult details Narrative: removal control, pt very very anxious, vasovagal episode in pre op . PMFSH Active Problems Active Problems: All Active Problems Counseling for initiation of control method (Acute) control counseling (Acute) Encounter for screening examination for sexually transmitted disease (Acute) Cervical cancer screening (Acute) Anxiety (Acute) Encounter for monitoring of etonogestrel implant (Acute) Vasovagal episode (Acute) Encounter for Nexplanon removal (Acute) Breakthrough bleeding on Nexplanon (Acute) Decreased hearing of both ears (Acute) Generalized anxiety disorder (Acute) Past Medical History Medical History Anxiety Family History Family History Father Gastrointestinal complaints Paternal Aunt Alcoholism Maternal Grandfather Hyperlipidemia Maternal Grandmother Celiac disease Maternal Uncle Alcoholism Maternal Aunt Alcoholism Paternal Grandfather Colon cancer Sister ADHD (attention deficit hyperactivity disorder) Other Substance abuse Family history of problems with anesthesia: No Surgical History Surgical History No pertinent past surgical history History of Problems with Anesthesia: No Social History Social History Household Members: Family Housing: House Are you a primary personal care service provider to a significant other at home: No Do you presently have visiting nurse or other home services: No Alcohol intake: current Alcohol intake frequency: holidays/special occasions only Patient Tobacco Use Status: Never used Tobacco e-Cigarette/Vaping Use: Never Used Second Hand Smoke Exposure: No Use of substances other than those prescribed or required for medical reasons: Yes Substance Use Type: Marijuana Substance Use Frequency: Monthly Have you been hit, kicked, punched, or otherwise hurt by someone within the past year? If so, by whom?: No Are you DNR?: No Advance Directives: No Advance Directives Information Provided: Yes Recently lost weight without trying: No Nutrition Risks: No Nutritional Risk Patient : No FDLMP: 06/12/2024 service: No Current occupational status: employed Current occupation: [employer] Current occupational exposures/hazards: No Cognitive needs: No Hearing needs: Yes Vision needs: Yes Meds Allergies Allergy/AdvReac Type Severity Reaction Status Date / Time No Known Allergies Allergy Verified 07/04/24 07:29 Active Medications: Current Medications Lactated Ringer's (Lr) 1,000 mls @ 100 mls/hr IVCONT .Q10H YANIQUE Home Medications ?Medication ?Instructions ?Recorded ?Confirmed ?Last Taken ?Type etonogestrel 68 mg subdermal subdermal 12/28/23 06/25/24 Unknown History implant (Nexplanon) Exam Height,Weight and Vital Signs: Height 5 ft 7 in Weight 74.843 kg Last Vital Signs Temp 98.6 F 07/04/24 07:52 Pulse 79 07/04/24 07:52 Resp 12 07/04/24 07:52 BP 100/46 L 07/04/24 07:52 Pulse Ox 99 07/04/24 07:52 O2 Del Method Room Air 07/04/24 07:52 Pertinent Lab Results Pertinent Lab Results: Laboratory Tests 07/04/24 07:10 Urine Test NEGATIVE Airway Mallampati Class: II TM Dist: >3cm Neck ROM: Full Heart: rrr Lungs: cta Assessment and Plan Assessment Anesthesia Assessment: Anesthesia Plan Discussed Final Anesthetic Review Family History of Problems with Anesthesia: No History of Problems with Anesthesia: No NPO: Yes ASA Class: II Final Preanesthetic Review: No Changes in Pt Med Stat, Meds/Allgs Chart Reviewed, Consent Obtained/Reviewed and Anes Risks/Benef Reviewed Patient Risk: Intermediate (due to extreme anxiety) Procedure Risk: Low Anesthetic Plan Anesthetic Plan: MAC: Disposition: Standard PACU
--- NOTE | 2024-07-04 07:55 | PC.NURSE ---
IV insertion completed. Pre treated w/3L O2, cold cloth on forehead, bed flat. Pt tolerated procedure well. Shortly after insertion stated she was not feeling well, eye roll and pt appeared to pass out. Anesthesia paged STAT, KS 25-31. Pt c/o n/v. Anesthesia at the bedside. VS stable. Pt reported feeling better. Repeat VS appropriate. Anesthesia aware.
[2024-07-04] MEDS: Lactated Ringers 1,000 ML 100 ML IVCONT (07:59)
--- NOTE | 2024-07-04 08:28 | MHC.SHP ---
Pre-Procedural Eval Section A - 24 Hr Update-Section A only Date of Service: 07/04/24 The patient is an INPATIENT: No Changes since office visit: Yes Patient answered all questions; No Cold of Flu in the past 2 weeks, No New Medical Problems and No Changes in Medication Section B - Complete if H&P > 30 days Chief Complaint: Encounter for surveillance of implantable subderma Details of Present Illness: No change in symptoms since previous visit. Relevant Family History (Specify if Yes): No Relevant Social History: None Present Medications: see Short Stay Collaborative assessment Medical History: No relevant PMH History of Previous Operations: No relevant previous surgery Allergies: Allergies Allergy/AdvReac Type Severity Reaction Status Date / Time No Known Allergies Allergy Verified 07/04/24 07:29 Review of Systems Sugical H&P ROS: Negative: Constitution, Cardiovascular, Respiratory, Gastrointestinal, Musculoskeletal and Integumentary Exam Surgical H&P Exam: Normal: HEENT, Normal: Heart, Normal: Lungs and Normal: Extremities Plan Diagnosis/Plan: Unchanged I have reviewed the history and physical and performed a pertinent physical examination on my patient. No changes have occurred unless specified. Time Spent With Patient Time: Total time managing care of this patient today ____ minutes.
--- NOTE | 2024-07-04 09:23 | P.OP_ITS ---
Operative Note Operative Note Date of Service: 07/04/24 Narrative: Preoperative diagnosis: Nexplanon left upper arm Postoperative diagnosis: Same Procedure: Removal of Nexplanon left upper arm with fluoroscopy Surgeon: Gonzalo Lopes MD Cyber Crime Investigator: CAROLINA Inman Anesthesia: General LMA Indications for procedure: 23-year-old female patient status post Nexplanon placement of the left upper arm. Patient has requested removal of the device. Operative findings: Unable to palpate the Nexplanon device. Fluoroscopy used to localize and remove. Left upper arm flouro: Specimen: Nexplanon (gross only) Estimated blood loss: 2 mL Complications: None Procedure details: Patient was brought to the OR and then a supine position with left arm on a hand table. After administering general anesthesia the patient's left upper arm was prepped with Betadine and draped in a sterile fashion. A surgical time-out was called and the consent confirmed. Patient received preoperative antibiotics and Venodyne boots were in place. The fluoroscopy was used to localize the Nexplanon. Local anesthesia was then infiltrated directly above the device. A 5 mm incision was then created with a 15 blade and dissection continued down to the subcutaneous tissue. Fluoroscopy was used to document grasping of the Nexplanon and removal. Post removal film confirms no residual Nexplanon. Wounds were irrigated with saline solution and suctioned dry. Skin was closed using a subcuticular 4-0 Polysorb suture. Sterile dressings consisting of Steri-Strips, 2 x 2 gauze and Tegaderm were then applied. The patient tolerated the procedure well. Sponge, instrument, and needle counts were reported as correct. Patient was transferred to PACU in stable condition.
== END 2024-07-04 10:12 | disposition home or self-care (01) ==
PROVIDERS: PCP Nurse Practitioner Family; Visit Provider Surgery
PROC: (CPT 11982; principal; 2024-07-04 08:50)
DX: Z30.46 Encounter for surveillance of implantable subdermal contraceptive (principal); F41.9 Anxiety disorder, unspecified
CPT/HCPCS: 11982; 81025; 88300; J0131; J0461; J0690; J1100; J1596; J2003; J2405; J2704; J2795; J3010

== ENCOUNTER → 2024-07-04 06:48 | Outpatient (BNV) | payer OTHER, SELFPAY | PROVIDERS: PCP Nurse Practitioner Family; Visit Provider Surgery | DX: Z30.46 Encounter for surveillance of implantable subdermal contraceptive (principal) | CPT/HCPCS: 11982; 76000 ==

== ENCOUNTER 2024-07-17 09:34 | Outpatient (AMB) | payer OTHER, SELFPAY ==
--- NOTE | 2024-07-17 09:36 | A.OFFVIS_ITS ---
Vital Signs 07/17/24 09:45 Height 5 ft 7 in Weight 163 lb 2.273 oz BMI 25.5 Respiration 16 Pulse 82 Intake Visit Reasons: S/P removal Nexplanon Lt arm w/fluoroscopy Intake Note: Patient is seen in office for post op assessment post excision of nexplanon on the left arm. Pt c/o:denies any concerns, healing as expected surgery:07/04/24 Strategic Development Manager Required: No Accompanied by: Self / Same As Patient Allergies No Known Allergies Allergy (Verified 07/04/24 07:29) HPI Comments Details: 23-year-old female patient status post removal of a Nexplanon of the left arm under fluoroscopy. She tolerated the procedure well and denies any ongoing arm symptoms. She denies any incisional problems. [facility] Medical History Anxiety Surgical History History of retained foreign body fully removed (07/04/24) Family History Father Gastrointestinal complaints Paternal Aunt Alcoholism Maternal Grandfather Hyperlipidemia Maternal Grandmother Celiac disease Maternal Uncle Alcoholism Maternal Aunt Alcoholism Paternal Grandfather Colon cancer Sister ADHD (attention deficit hyperactivity disorder) Other Substance abuse Social History Household Members: Family Housing: House Are you a primary care support representative to a significant other at home: No Do you presently have visiting nurse or other home services: No 75 years or older and lives alone: No Alcohol intake: current Alcohol intake frequency: holidays/special occasions only Patient Tobacco Use Status: Never used Tobacco e-Cigarette/Vaping Use: Never Used Second Hand Smoke Exposure: No Substance Use Type: Marijuana service: No Current occupational status: employed Current occupation: [employer] Current occupational exposures/hazards: No Cognitive needs: No Hearing needs: Yes Vision needs: Yes Female Reproductive History Menstrual Age of Menarche: 11 Physical Exam Vital Signs: Last Vital Signs Pulse 82 07/17/24 09:45 Resp 16 07/17/24 09:45 BMI result Body Mass Index 25.5 HEENT Head: Yes normal to inspection Resp Effort & Inspection: normal respiratory effort Extrem Other: Left upper arm with a well-healed incision without redness or discharge Assessment & Plan Assessment & Plan (1) Encounter for Nexplanon removal: Comment: Nexplanon was not palpable referred to general surgery. It was removed by Dr. Mary torre under general anesthesia and fluoroscopic confirmation 07/04/24. Code(s): Z30.46 - Encounter for surveillance of implantable subdermal contraceptive Category: Medical Plan 23-year-old female status post removal of Nexplanon left arm. She tolerated the procedure well and her wounds are healing nicely. She should follow up as needed. Coding Level of Care Code Global (51904) Diagnoses Encounter for Nexplanon removal Z30.46
[2024-07-17 09:45] VITALS: PULSE 82; RESP 16; BMI 25.5
== END 2024-07-17 09:59 | disposition home or self-care (01) ==
PROVIDERS: PCP Nurse Practitioner Family; Visit Provider Surgery
DX: Z09 Encounter for follow-up examination after completed treatment for conditions other than malignant neoplasm (principal)
CPT/HCPCS: 99212

== ENCOUNTER → 2024-07-17 09:34 | Outpatient (BNVA) | payer OTHER, SELFPAY | PROVIDERS: PCP Nurse Practitioner Family; Visit Provider Surgery ==